=== PATIENT | female | born 1960 | race African-American/Black ===

== ENCOUNTER 2020-06-28 14:32 | Emergency (ER) | payer SELFPAY ==
[2020-06-28] MEDS ORDERED: traMADol HCl 50 MG TAB ONE (16:16)
== END 2020-06-28 16:21 | disposition home or self-care (01) ==
LOC: ERS 14:32
DX: K02.9 Dental caries, unspecified (principal); M67.432 Ganglion, left wrist; K03.81 Cracked tooth; I10 Essential (primary) hypertension; J45.909 Unspecified asthma, uncomplicated; F17.210 Nicotine dependence, cigarettes, uncomplicated; Z79.899 Other long term (current) drug therapy
CPT/HCPCS: 99283

== ENCOUNTER 2021-01-17 19:53 | Emergency (ER) | payer SELFPAY | END 2021-01-17 21:53 | disposition left against medical advice (07) | LOC: ERS 19:53 | DX: Z53.21 Procedure and treatment not carried out due to patient leaving prior to being seen by health care provider (principal) ==

== ENCOUNTER 2021-06-17 05:28 | Emergency (ER) | payer OTHER, SELFPAY ==
[2021-06-17] MEDS ORDERED: Ondansetron ODT 4 MG TAB ONE (05:54)
[2021-06-17] MEDS ORDERED: cloNIDine 0.1 MG TAB ONE (05:54)
== END 2021-06-17 07:05 | disposition home or self-care (01) ==
LOC: ERS 05:28
DX: I10 Essential (primary) hypertension (principal); Z79.899 Other long term (current) drug therapy; Z79.84 Long term (current) use of oral hypoglycemic drugs
CPT/HCPCS: 70450; Q0162

== ENCOUNTER 2021-09-13 16:26 | Observation (INO) | payer OTHER ==
[2021-09-13] MEDS ORDERED: Ondansetron ODT 4 MG TAB PO PRN (23:37)
[2021-09-13] MEDS ORDERED: Ondansetron PF 4 MG/2 ML Vial IVP PRN (23:37)
[2021-09-13] MEDS ORDERED: Acetaminophen 325 MG TAB PO PRN (23:37)
[2021-09-13] MEDS ORDERED: Acetaminophen 650 MG Suppository PR PRN (23:37)
[2021-09-13] MEDS ORDERED: hydrALAZINE 20 MG/ML VIAL SLOW IVP PRN (23:47)
[2021-09-14 00:35] VITALS: BMI 40.1
[2021-09-14] MEDS: hydrALAZINE 20 MG/ML VIAL SLOW IVP PRN ×2 (01:39→05:33)
[2021-09-14 03:00] LABS: Amphetamine Not Detected (NotDetected); Barbiturates Screen Not Detected (NotDetected); Benzodiazepine Screen Not Detected (NotDetected); Cocaine Metabolite Screen Detected (NotDetected); Methadone Not Detected (NotDetected); Methamphetamine Not Detected (NotDetected); Opiate Screen Not Detected (NotDetected); Oxycodone Screen Not Detected (NotDetected); Phencyclidine (PCP) Not Detected (NotDetected); THC/Cannabinoid Screen Not Detected (NotDetected); Tricyclic Screen Not Detected (NotDetected)
[2021-09-14 04:58] LABS: Anion Gap 11 mmol/L (10-20); BUN (Urea Nitrogen) 11 mg/dL (9.8-20.1); Calc. Creatinine Clearance 151 mL/min (70-130); Carbon Dioxide 23 mmol/L (22-29); Chloride 107 mmol/L (98-107); Glucose 123 mg/dL (70-105); Potassium 3.8 mmol/L (3.5-5.1); Sodium 137 mmol/L (136-145)
[2021-09-14 05:35] LABS: Hemoglobin 14.1 g/dL (12.0-16.0); MDiff Complete? YES; Mean Corpuscular HGB CONC 32.1 g/dL (32.0-36.0); Mean Corpuscular Hemoglobin 31.4 pg (27.0-31.0); Mean Corpuscular Volume 97.8 fL (78.0-98.0); Mean Platelet Volume 7.9 fL (7.4-10.4); Platelet Count 207 thou/uL (130-400); RBC Distribution Width 11.8 % (11.5-14.5); Red Blood Cell (RBC) Count 4.48 mill/uL (4.20-5.40); White Blood Cell (WBC) Count 2.4 thou/uL (4.8-10.8)
[2021-09-14 05:36] LABS: Lymphocytes 31 % (21-51); Monocytes 9 % (0-10); Neutrophil 60 % (42-75); Platelet Morphology Comment Appears Adequate; RBC Morphology Normal
[2021-09-14] MEDS ORDERED: Enoxaparin Sodium 40 MG/0.4 ML SYRINGE SC SCH (09:00)
[2021-09-14] MEDS ORDERED: methylPREDNISolone Sod Succ 40 MG VIAL IVP SCH (09:00)
[2021-09-14 09:38] VITALS: TEMP 97.9
[2021-09-14 11:13] LABS: SARS-CoV-2 PCR by NAA Not Detected (NotDetected)
[2021-09-14 11:52] VITALS: BP 123/60
[2021-09-14] MEDS ORDERED: cefTRIAXone\\ROCEPHIN 1 GM in Sodium Chloride 0.9% 100 ML IVPB SCH (21:00)
[2021-09-17] MEDS ORDERED: FLU VACC QS2021-22(6MOS UP)/PF 60 MCG/0.5 ML SYRINGE IM ONE (09:00)
== END 2021-09-14 13:55 | disposition home or self-care (01) ==
LOC: ERS 16:26 → 2NO 22:28
PROVIDERS: ADMIT Student in an Organized Health Care Education/Training Program; ATTEND Internal Medicine
DX: G93.40 Encephalopathy, unspecified (principal); I10 Essential (primary) hypertension; F14.10 Cocaine abuse, uncomplicated; Z20.822 Contact with and (suspected) exposure to COVID-19
CPT/HCPCS: 36415; 36416; 70450; 80048; 80306; 85025; 96374; 96376; G0378; J0360; U0003; U0005

== ENCOUNTER 2021-09-19 03:04 | Emergency (ER) | payer OTHER ==
[2021-09-19] MEDS ORDERED: Cyclobenzaprine 10 MG TAB ONE (03:28)
[2021-09-19] MEDS ORDERED: Ketorolac Tromethamine 30 MG/ML VIAL ONE (03:28)
[2021-09-19 04:28] LABS: Bacteria/HPF None Seen HPF (None Seen); Bilirubin Negative (Negative); Blood, Urine Negative (Negative); Clarity Clear (Clear); Glucose, Urine (Dipstick) Normal (Negative); Ketone, Urine Negative (Negative); Leukocyte 500 Leu/uL (Negative); Nitrite Negative (Negative); Protein, Urine (Dipstick) 10 mg/dL (Neg-Trace); Specific Gravity, Urine 1.029 (1.002-1.036); Squamous Epithelial 0-3 HPF (0-3); Urobilinogen 3 mg/dL (Less than 2); WBC/HPF 21-50 HPF (0-3); pH, Urine 5.5 (5.0-9.0)
== END 2021-09-19 04:45 | disposition home or self-care (01) ==
LOC: ERS 03:04
DX: M54.50 Low back pain, unspecified (principal); N39.0 Urinary tract infection, site not specified; I10 Essential (primary) hypertension; E11.9 Type 2 diabetes mellitus without complications; F17.210 Nicotine dependence, cigarettes, uncomplicated; Z79.84 Long term (current) use of oral hypoglycemic drugs; Z79.899 Other long term (current) drug therapy
CPT/HCPCS: 81003; 81015; 87086; 96372; 99283; J1885

== ENCOUNTER 2023-07-14 08:29 | Outpatient (CLI) | payer OTHER | END 2023-07-14 08:30 | disposition home or self-care (01) | LOC: BICMAMMO 08:29 | PROVIDERS: ATTEND Family Medicine | DX: Z12.31 Encounter for screening mammogram for malignant neoplasm of breast (principal); Z80.3 Family history of malignant neoplasm of breast | CPT/HCPCS: 77063; 77067 ==